=== PATIENT | female | born 1985 | race Two or more races ===

== ENCOUNTER 2021-10-03 09:35 | Day surgery (SDC) | payer OTHER ==
[2021-10-03] MEDS ORDERED: NAPR500T14 PO (16:07)
[2021-10-03] MEDS ORDERED: MORGIDOX100 MG PO (16:07)
== END 2021-10-03 20:00 | disposition home or self-care (01) ==
LOC: CIR.AMB 09:35
PROVIDERS: ATTEND Obstetrics & Gynecology
DX: D25.0 Submucous leiomyoma of uterus (principal)